=== PATIENT | female | born 2000 | race Caucasian/White ===

== ENCOUNTER 2020-02-08 15:38 | Emergency (ER) | payer OTHER ==
--- NOTE | 2020-02-08 15:40 | EDM.PDOC ---
ED HPI GENERAL MEDICAL PROBLEM - General Stated Complaint: COVID Time Seen by Provider: 02/08/20 15:38 Source of Information: Reports: Patient History Limitations: Reports: No Limitations - History of Present Illness INITIAL COMMENTS - FREE TEXT/NARRATIVE: 20F PMHx asthma presents for concern for COVID. Notes earlier this week feeling fatigued, body aches, subjective fever, diarrhea, nausea, decreased PO, and abdominal cramping pains. Then over last few days developed URI-like symptoms with sore throat and runny nose. Today developed some chest tightness and non- productive cough. Worried b/c of h/o asthma. Does have known positive COVID exposure last week chest pressure Pain Score (Numeric/FACES): 5 - Related Data Allergies Allergy/AdvReac Type Severity Reaction Status Date / Time No Known Allergies Allergy Verified 02/08/20 16:02 Home Meds: Home Meds . [No Known Home Meds] 02/08/20 [History] ED ROS GENERAL - Review of Systems Review Of Systems: Comprehensive ROS is negative, except as noted in HPI. ED EXAM, GENERAL - Physical Exam Exam: See Below Exam Limited By: No Limitations General Appearance: Alert, WD/WN, No Apparent Distress Ears: Normal External Exam Nose: Normal Inspection Throat/Mouth: Normal Inspection, Normal Lips, Normal Teeth, Normal Gums, Normal Oropharynx, Normal Voice, No Airway Compromise Head: Atraumatic, Normocephalic Neck: Normal Inspection Respiratory/Chest: No Respiratory Distress, Lungs Clear, Normal Breath Sounds, No Accessory Muscle Use Cardiovascular: Normal Peripheral Pulses, Regular Rate, Rhythm, No Edema Extremities: Normal Inspection Neurological: Alert Psychiatric: Normal Affect, Normal Mood Skin Exam: Warm, Dry, Intact, Normal Color EKG INTERPRETATION EKG Date: 02/08/20 Time: 16:14 Rhythm: NSR Rate (Beats/Min): 78 [place]: Normal P-Wave: Present QRS: Normal ST-T: Normal QT: Normal Comparison: NA - No Prior EKG Course - Vital Signs Last Recorded V/S: Last Vital Signs Temp 97.9 F 02/08/20 16:02 Pulse 82 02/08/20 16:02 Resp 17 02/08/20 16:02 BP 133/90 02/08/20 16:02 Pulse Ox 96 02/08/20 16:02 - Orders/Labs/Meds Orders: Active Orders 24 hr Category Date Time Status CORONAVIRUS COVID-19 PCR PHL Stat Lab 02/08/20 16:50 Ordered Labs: Laboratory Tests 02/08/20 Range/Units 16:40 SARS CoV-2 RNA Rapid JAGJIT POSITIVE H (NEGATIVE) - Re-Assessments/Exams Free Text/Narrative Re-Assessment/Exam: 02/08/20 17:56 +COVID 19 testing. Normal CXR. Patient well appearing without respiratory distress anad with normal VS. WIll d/c with instructiosn for PO tylenol/motrin and hydration. Return precautions discussed at length. Patient is [employer] student and demonstrates exceptional health literacy. Will d/c with return precautions. Departure - Departure Time of Disposition: 17:56 Disposition: Home, Self-Care 01 Condition: Good Clinical Impression: COVID-19 - Discharge Information Referrals: PCP,None [Primary Care Provider] - Additional Instructions: The following information is given to patients seen in the emergency department who are being discharged to home. This information is to outline your options for follow-up care. We provide all patients seen in our emergency department with a follow-up referral. The need for follow-up, as well as the timing and circumstances, are variable depending upon the specifics of your emergency department visit. If you don't have a primary care physician on staff, we will provide you with a referral. We always advise you to contact your personal physician following an emergency department visit to inform them of the circumstance of the visit and for follow-up with them and/or the need for any referrals to a consulting specialist. The emergency department will also refer you to a specialist when appropriate. This referral assures that you have the opportunity for follow-up care with a specialist. All of these measure are taken in an effort to provide you with optimal care, which includes your follow-up. Under all circumstances we always encourage you to contact your private physician who remains a resource for coordinating your care. When calling for follow-up care, please make the office aware that this follow-up is from your recent emergency room visit. If for any reason you are refused follow-up, please contact the [facility] Emergency Department at and asked to speak to the emergency department charge nurse. Please follow up with your primary care physician. If you do not have a primary care physician, see below: [facility] [address] [place] [address] My [facility] [address] [place] [address] Sepsis Event Note (ED) - Focused Exam Vital Signs: Vital Signs Temp Pulse Resp BP Pulse Ox 02/08/20 16:02 97.9 F 82 17 133/90 96 - My Orders Last 24 Hours: My Active Orders 02/08/20 16:50 CORONAVIRUS COVID-19 PCR PHL Stat - Assessment/Plan Last 24 Hours: My Active Orders 02/08/20 16:50 CORONAVIRUS COVID-19 PCR PHL Stat
--- NOTE | 2020-02-08 16:39 | CR ---
Indication: Dyspnea. Technique: Single AP portable view of the chest. Comparison: None Findings: The heart is normal in size. The lungs are clear. No infiltrate, pleural effusion, or pneumothorax is identified. Impression: No acute cardiopulmonary process Dictated by Lucina Irene MD @ Feb 08 2020 4:38PM Signed by Dr. Lucina Irene @ Feb 08 2020 4:38PM
== END 2020-02-08 18:07 | disposition home or self-care (01) ==
LOC: MW.ED 15:38
DX: U07.1 COVID-19 (principal)
CPT/HCPCS: 71045; 71045-26; 93005; 93010; 99282; 99285-25; U0002